=== PATIENT | male | born 1935 | race Caucasian/White ===

== ENCOUNTER 2017-03-21 05:02 | Day surgery (SDC) | payer OTHER ==
[~2017-03-21 05:02] MED LIST: ACCUNE1 INH; ADVAIR INH; ADVAIR250 INH; ALBUTEROL5 INH; ASAB PO; ATV1 PO; BREO ELLIPTA INH; COZAAR100 MG PO; DIOVAN HCT320 MG/25 PO; DIOVAN PO; FERROUS GLUC325 MG PO; L40 PO; LORCET PO; MEDROLPAK4 PO; METAMUCIL CAN7 OZ PO; NORV5 PO; P20 PO; PCET PO; PLAVIX PO; PRILO PO; PROAIR HFA INH; PROSCAR5 PO; PROVENTSOL INH; SPIRIVA INH; SPIRIVA RESPIMAT INH; T300 PO; THEO24300 PO; V2 PO; VITAMIN B-122500 MCG SL; XANAX1 MG PO; XOPENEX HFA INH; ZESTRIL10 MG PO; ZOCOR20 PO
== END 2017-03-21 07:59 | disposition home or self-care (01) ==
LOC: SDC 05:02
PROVIDERS: Orthopaedic Surgery
PROC: 3E0S33Z Introduction of Anti-inflammatory into Epidural Space, Percutaneous Approach (ICD-10-PCS; principal; 2017-03-21 07:45)
DX: M54.16 Radiculopathy, lumbar region (principal); I25.10 Atherosclerotic heart disease of native coronary artery without angina pectoris; E78.00 Pure hypercholesterolemia, unspecified; I10 Essential (primary) hypertension; J44.9 Chronic obstructive pulmonary disease, unspecified; M19.90 Unspecified osteoarthritis, unspecified site; Z96.649 Presence of unspecified artificial hip joint; K21.9 Gastro-esophageal reflux disease without esophagitis; N40.0 Benign prostatic hyperplasia without lower urinary tract symptoms; Z87.442 Personal history of urinary calculi; Z98.41 Cataract extraction status, right eye; Z98.42 Cataract extraction status, left eye; Z88.8 Allergy status to other drugs, medicaments and biological substances; Z98.890 Other specified postprocedural states
CPT/HCPCS: J1040; J2250; J3010; Q9967